=== PATIENT | male | born 2005 | race Caucasian/White ===

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

== ENCOUNTER → 2025-02-07 | Outpatient (CLI) | payer BC ==
--- NOTE | 2025-02-07 11:34 | US ---
EXAMINATION TYPE: US abdomen complete DATE OF EXAM: 02/07/2025 COMPARISON: 04/06/2020 CLINICAL INDICATION: Male, 19 years old with history of R10.9 UNSPECIFIED ABDOMINAL PAIN; pain x christiano ral years on and off TECHNIQUE: Grayscale and color Doppler imaging of the abdomen was performed. FINDINGS: EXAM MEASUREMENTS: Liver Length: 14.4 cm Gallbladder Wall: 0.2 cm CBD: 0.5 cm, color Doppler imaging was utilized to isolate the common bile duct for measurement. Spleen: 10.8 cm Right Kidney: 10.5x5.6x5.4 cm Left Kidney: 10.5x5.8x4.8 cm ARMATURE REWINDER NOTES: limited exam due to overlying bowel Pancreas: Obscured by bowel gas Liver: Increased attenuation, decreased visualization of vessels suggestive of fatty infiltrate, sli ghtly difficult to penetrate Gallbladder: No stones seen Evidence for sonographic Cai's sign: No CBD: wnl Spleen: wnl Right Kidney: wnl, No hydronephrosis, calculi or masses seen Left Kidney: wnl, No hydronephrosis, calculi or masses seen Upper IVC: mid/dist: slightly obscured Abd Aorta: slightly obscured, wnl as best seen Pancreas is obscured by overlying bowel gas. Diffusely increased echogenicity of the liver with sligh t difficulty in penetration. No surface nodularity or focal lesion identified. No gallstones, wall th ickening or surrounding fluid. Negative sonographic Cai sign. Common bile duct is within normal li mits. Spleen is unremarkable. Both kidneys demonstrate no hydronephrosis, shadowing calculus or solid renal mass. Corticomedullary differentiation is maintained bilaterally. The visualized portions of t he upper IVC are within normal limits. The visualized portions of the abdominal aorta demonstrating n ormal course and caliber. IMPRESSION: 1. No ultrasound evidence for acute process. 2. Hepatic steatosis. [facility], , 02/07/2025 11:31 AM
== END | disposition home or self-care (01) ==
LOC: RADUSWWP 09:13
DX: K76.0 Fatty (change of) liver, not elsewhere classified (principal)
CPT/HCPCS: 76700